=== PATIENT | female | born 2000 | race Two or more races ===

== ENCOUNTER → 2018-07-27 00:06 | Emergency (ER) | payer SELFPAY ==
--- NOTE | 2018-07-27 02:07 | ED ---
Syncope/Near Syncope - HPI Summary HPI Summary: Patient is a 18 y/o F presenting to ED with complaints of a syncopal episode at around 2230 07/26/18. She states that she was going out with friends to [place] when she suddenly became nauseous and dizzy. Patient attempted to find a place to sit down, when reaching for a door she states that she "passed out". She notes that she struck her face when she fell during her syncopal episode. Patient states that she next remembers having people stand over her. Neck pain and abdominal pain are denied. Patient states that she feels "fine" at present in the room. She denies previous syncopal episodes. Patient notes that prior to the episode, she had taken a nap and went to [employer] with friends. On triage , associated severity is rated 2/10, patient notes Sx are alleviated by sitting. Home medications and allergies are reviewed. - History Of Current Complaint Chief Complaint: EDSyncope Time Seen by Provider: 07/27/18 02:02 Hx Obtained From: Patient Onset/Duration: Sudden Onset, Resolved - syncopal episode Timing: Intermittent Episode Lasting - onset 222907/26/18 Context: Witnessed Activity At Onset: Other - walking Associated Head Trauma: Yes Aggravating Factor(s): Nothing Alleviating Factor(s): Other - sitting Associated Signs And Symptoms: Dizzy, Other - nausea, head injury, no neck or abdominal pain - Allergies/Home Medications Allergies/Adverse Reactions: Allergies Allergy/AdvReac Type Severity Reaction Status Date / Time No Known Allergies Allergy Verified 07/27/18 01:50 Home Medications: Home Medications NK [No Home Medications Reported] 07/27/18 [History Confirmed 07/27/18] PMH/Surg Hx/FS Hx/Imm Hx Sensory History: Denies: Hx Legally Blind, Hx Deafness Opthamlomology History: Denies: Hx Legally Blind EENT History: Denies: Hx Deafness Infectious Disease History: No Infectious Disease History: Reports: Traveled Outside the [place] in Last 30 Days - [place] - Family History Known Family History: Negative: Diabetes - Social History Alcohol Use: Occasionally Substance Use Type: Reports: None Smoking Status (MU): Current Some Day Smoker Review of Systems Positive: Nausea. Negative: Abdominal Pain Musculoskeletal: Other - POSITIVE - HEAD INJURY; NEGATIVE - NECK PAIN Neurological: Other - POSITIVE - LIGHT-HEADEDNESS Positive: Syncope All Other Systems Reviewed And Are Negative: Yes Physical Exam - Summary Physical Exam Summary: Appearance: Well-appearing, Well-nourished, lying in bed comfortably Skin: Warm, dry, no obvious rash Eyes: sclera anicteric, no conjunctival pallor ENT: mucous membranes moist, pharynx appears normal; tenderness and abrasion of bridge of the nose, no hematoma, abrasion at tip of nose and upper lip, no lacerations. Neck: Supple, nontender Respiratory: Clear to auscultation, no signs of respiratory distress Cardiovascular: Normal S1, S2. No murmurs. Normal distal pulses in tibial and radial bilaterally. Abdomen: Soft, nontender, normal active bowel sounds present Musculoskeletal: Normal, Strength/ROM Intact Neurological: A&Ox3, awake and alert, mentation is normal, speech is fluent and appropriate Psychiatric: affect is normal, does not appear anxious or depressed Triage Information Reviewed: Yes Vital Signs On Initial Exam: Initial Vitals Temp Pulse Resp BP Pulse Ox 98.8 F 99 18 109/80 98 07/27/18 00:08 07/27/18 00:08 07/27/18 00:08 07/27/18 00:08 07/27/18 00:08 Vital Signs Reviewed: Yes Diagnostics - Vital Signs Vital Signs Temp Pulse Resp BP Pulse Ox 07/27/18 00:08 98.8 F 99 18 109/80 98 - Laboratory Lab Statement: Any lab studies that have been ordered have been reviewed, and results considered in the medical decision making process. - EKG 0017 Cardiac Rate: NL - rate of 85 BPM EKG Rhythm: Sinus Rhythm Summary of EKG Findings: NSR at 85 BPM, P waves, QRS complex, and T waves are within normal limits, T waves and intervals are normal, no ischemic changes. This is a normal EKG Course/Dx Course Of Treatment: Patient is a 18 y/o F presenting to ED with complaints of a syncopal episode at around 2230 07/26/18. She states that she was going out with friends to [place] when she suddenly became nauseous and dizzy. Patient attempted to find a place to sit down, when reaching for a door she states that she "passed out". She notes that she struck her face when she fell during her syncopal episode. Patient states that she next remembers having people stand over her. Neck pain and abdominal pain are denied. Patient states that she feels "fine" at present in the room. She denies previous syncopal episodes. On physical exam, tenderness and abrasion of bridge of the nose, no hematoma, abrasion at tip of nose and upper lip, no lacerations. EKG showed NSR at 85 BPM , P waves, QRS complex, and T waves are within normal limits, T waves and intervals are normal, no ischemic changes. This is a normal EKG. EKG and possible reasons for syncopal episode were discussed. Patient will be discharged to home. - Diagnoses Provider Diagnoses: Vasovagal syncope Discharge - Sign-Out/Discharge Documenting (check all that apply): Patient Departure - discharge Patient Received Moderate/Deep Sedation with Procedure: No - Discharge Plan Condition: Good Disposition: HOME Patient Education Materials: Syncope (ED) Referrals: [facility] [Outside] - If Needed - Billing Disposition and Condition Condition: GOOD Disposition: Home - Attestation Statements Document Initiated by Anatoliy: Yes Documenting Scribe: PIPER WALLACE Provider For Whom Anatoliy is Documenting (Include Credential): SARAH CELESTIN MD Scribe Attestation: IPIPER, scribed for SARAH CELESTIN MD on 07/28/18 at 1923. Scribe Documentation Reviewed: Yes Provider Attestation: The documentation as recorded by the [email or web address] accurately reflects the service I personally performed and the decisions made by me, SARAH CELESTIN MD Status of Scribe Document: Viewed
[2018-07-27 02:21] VITALS: BP 108/68
== END | disposition home or self-care (01) ==
LOC: ED 00:06
DX: R55 Syncope and collapse (principal); F17.210 Nicotine dependence, cigarettes, uncomplicated
CPT/HCPCS: 93005; 99282